=== PATIENT | male | born 2000 | race Hispanic/Latino ===

== ENCOUNTER 2020-11-21 05:49 | Emergency (ER) | payer OTHER, SELFPAY ==
[2020-11-21 07:44] LABS: SARS-COV-2 RT PCR NEGATIVE (NEGATIVE)
--- NOTE | 2020-11-21 17:56 | ER ---
Nurse's Notes [facility] Name: Mauricio Hodgson Age: 20 yrs Sex: Male : 2000 Arrival Date: 11/21/2020 Time: 05:55 Bed 13 Private MD: Diagnosis: Acute upper respiratory infection, unspecified Presentation: 11/21 06:05 Chief complaint: Patient states: cough, runny nose, sore throat since yesterday, work em wanted him to get checked out, denies fever. Coronavirus screen: Client denies travel out of the [place] in the last 14 days. cough unrelated to allergies, runny nose, Client presents with at least one sign or symptom that may indicate coronavirus-19. Standard/surgical mask placed on the client. Provider contacted for isolation considerations. Ebola Screen: Patient negative for fever greater than or equal to 101.5 degrees Fahrenheit, and additional compatible Ebola Virus Disease symptoms Patient denies exposure to infectious person. Patient denies travel to an Ebola-affected area in the 21 days before illness onset. No symptoms or risks identified at this time. Initial Sepsis Screen: Does the patient meet any 2 criteria? No. Patient's initial sepsis screen is negative. Does the patient have a suspected source of infection? No. Patient's initial sepsis screen is negative. Risk Assessment: Do you want to hurt yourself or someone else? Patient reports no desire to harm self or others. Onset of symptoms was November 21, 2020. 06:05 Method Of Arrival: Ambulatory em 06:05 Acuity: ELLIE 4 em Triage Assessment: 06:15 General: Appears in no apparent distress. Behavior is calm, cooperative. Pain: Denies ak2 pain. Historical: - Allergies: 06:07 PENICILLINS; em - PMHx: 06:07 None; em - PSHx: 06:07 None; em - Immunization history:: Adult Immunizations up to date. - Social history:: Smoking status: Patient reports the use of cigarette tobacco products, smokes one pack cigarettes per day. - Family history:: not pertinent. - Hospitalizations: : No recent hospitalization is reported. Screenin:16 Abuse screen: Denies threats or abuse. Denies injuries from another. Nutritional ak2 screening: No deficits noted. Tuberculosis screening: No symptoms or risk factors identified. Fall Risk None identified. Assessment: 06:15 Reassessment: Patient and/or family updated on plan of care and expected duration. Pain ak2 level reassessed. General: Appears in no apparent distress. Pain: Denies pain. Neuro: No deficits noted. Cardiovascular: No deficits noted. Respiratory: No deficits noted. 07:59 Reassessment: No changes from previously documented assessment. Patient and/or family ll1 updated on plan of care and expected duration. Pain level reassessed. Patient is alert, oriented x 3, equal unlabored respirations, skin warm/dry/pink. Vital Signs: 06:05 BP 123 / 73; Pulse 77; Resp 18; Temp 97.7; Pulse Ox 100% on R/A; Weight 117.93 kg; em Height 5 ft. 11 in. (180.34 cm); Pain 0/10; 07:59 BP 116 / 71; Pulse 66; Resp 16; Temp 98.6; Pulse Ox 100% ; ll1 06:05 Body Mass Index 36.26 (117.93 kg, 180.34 cm) em ED Course: 05:55 Patient arrived in ED. es 06:05 James Mitchell MD is Attending Physician. rn 06:07 Triage completed. em 06:07 Arm band placed on. em 06:16 Patient has correct armband on for positive identification. ak2 06:16 No provider procedures requiring assistance completed. Patient did not have IV access ak2 during this emergency room visit. 07:21 Dave Villa, RN is Primary Nurse. ll1 Administered Medications: No medications were administered Outcome: 07:48 Discharge ordered by . rn 07:59 Discharged to home ambulatory. ll1 07:59 Condition: stable 07:59 Discharge instructions given to patient, Instructed on discharge instructions, follow up and referral plans. Demonstrated understanding of instructions, follow-up care. 08:00 Patient left the ED. ll1 Signatures: Abby Lopez Edgar RN RN James Mitchell MD MD rn Lewis, Lynsay, RN RN ll1 Prasanth Llanos ak2
--- NOTE | 2020-11-21 17:56 | EDPHYS ---
Physician Documentation [facility] Name: Mauricio Hodgson Age: 20 yrs Sex: Male : 2000 Arrival Date: 11/21/2020 Time: 05:55 Bed 13 Private MD: ED Physician James Mitchell HPI: 11/21 06:09 This 20 yrs old Male presents to ER via Ambulatory with complaints of Cough, rn Runny Nose, Raspy throat. 06:09 This 20 yrs old Male presents to ER via Ambulatory with complaints of Cough, rn Runny Nose. 06:09 The patient or guardian reports cough, that is intermittent, described as mild. Onset: rn The symptoms/episode began/occurred 2 day(s) ago. Severity of symptoms: At their worst the symptoms were mild, in the emergency department the symptoms are unchanged. Modifying factors: The symptoms are alleviated by nothing, the symptoms are aggravated by nothing. Associated signs and symptoms: Pertinent positives: earache, rhinorrhea, sore throat, Pertinent negatives: chest pain, diarrhea, vomiting. The patient has experienced similar episodes in the past. The patient has not recently seen a physician. Reports sent by work for COVID testing, reports 2 days of cough, congestion, ear fullness on both sides, fatigue. No known sick contacts. Denies sob. . Historical: - Allergies: 06:07 PENICILLINS; em - PMHx: 06:07 None; em - PSHx: 06:07 None; em - Immunization history:: Adult Immunizations up to date. - Social history:: Smoking status: Patient reports the use of cigarette tobacco products, smokes one pack cigarettes per day. - Family history:: not pertinent. - Hospitalizations: : No recent hospitalization is reported. ROS: 06:09 Constitutional: Negative for chills, and weight loss, Eyes: Negative for injury, pain, rn redness, and discharge, ENT: + congestion and sore throat Neck: Negative for injury, pain, and swelling, Cardiovascular: Negative for chest pain, palpitations, and edema, Respiratory: + cough, neg for sob. Abdomen/GI: Negative for abdominal pain, nausea, vomiting, diarrhea, and constipation, Back: Negative for injury and pain, : Negative for injury, bleeding, discharge, and swelling, MS/Extremity: Negative for injury and deformity, Skin: Negative for injury, rash, and discoloration, Neuro: Negative for headache, weakness, numbness, tingling, and seizure. Exam: 06:09 Constitutional: This is a well developed, well nourished patient who is awake, alert, rn and in no acute distress. Head/Face: Normocephalic, atraumatic. Eyes: Periorbital areas with no swelling, redness, or edema. ENT: No oral swelling or exudate, no stridor, + mild nasal congestion Neck: Trachea midline, no thyromegaly or masses palpated, and no cervical lymphadenopathy. Supple, full range of motion without nuchal rigidity, or vertebral point tenderness. No Meningismus. Cardiovascular: Regular rate and rhythm. No pulse deficits. Respiratory: No increased work of breathing, no retractions or nasal flaring. Skin: Warm, dry MS/ Extremity: Pulses equal, no cyanosis. Neuro: Awake and alert, GCS 15 Vital Signs: 06:05 BP 123 / 73; Pulse 77; Resp 18; Temp 97.7; Pulse Ox 100% on R/A; Weight 117.93 kg; em Height 5 ft. 11 in. (180.34 cm); Pain 0/10; 07:59 BP 116 / 71; Pulse 66; Resp 16; Temp 98.6; Pulse Ox 100% ; ll1 06:05 Body Mass Index 36.26 (117.93 kg, 180.34 cm) em MDM: 06:05 Patient medically screened. rn 07:47 Differential Diagnosis: Influenza Upper Respiratory Infection Viral Syndrome Other rn Katja. Data reviewed: vital signs, nurses notes, lab test result(s), and as a result, I will discharge patient. Counseling: I had a detailed discussion with the patient and/or guardian regarding: the historical points, exam findings, and any diagnostic results supporting the discharge/admit diagnosis, lab results, the need for outpatient follow up, to return to the emergency department if symptoms worsen or persist or if there are any questions or concerns that arise at home. Special discussion: I discussed with the patient/guardian in detail that at this point there is no indication for admission to the hospital. It is understood, however, that if the symptoms persist or worsen the patient needs to return immediately for re-evaluation. ED course: Covid and flu negative, will DC home. 07/27 07:44 Order name: COVID-19/FLU A+B; Complete Time: 07:47 EDMS Administered Medications: No medications were administered Disposition Summary: 11/21/20 07:48 Discharge Ordered Location: Home rn Problem: new rn Symptoms: are unchanged rn Condition: Stable rn Diagnosis - Acute upper respiratory infection, unspecified rn Followup: rn - With: Private Physician - When: As needed - Reason: Recheck today's complaints, Re-evaluation by your physician Discharge Instructions: - Discharge Summary Sheet rn - Upper Respiratory Infection, Adult rn - Viral Respiratory Infection rn Forms: - Medication Reconciliation Form rn - Thank You Letter rn - Work release form bd - Antibiotic machine turner - Prescription Opioid Use rn Signatures: Dispatcher [employer] Eben Gorodn RN RN James Carmona MD MD rn gynecology: (The following items were deleted from the chart) 06:48 06:10 Influenza Screen (A \T\ B)+BA.LAB.BRZ ordered. EDMS EDMS 06:48 06:10 CORONAVIRUS+MR.LAB.BRZ ordered. EDMS EDMS
[2020-11-22 19:22] VITALS: BP 116/71; TEMP 98.6; O2SAT 100
== END 2020-11-21 08:00 | disposition home or self-care (01) ==
LOC: ER 05:49
DX: J06.9 Acute upper respiratory infection, unspecified (principal); Z20.822 Contact with and (suspected) exposure to COVID-19; F17.210 Nicotine dependence, cigarettes, uncomplicated
CPT/HCPCS: 0240U; 99281